=== PATIENT | male | born 1960 | race Caucasian/White ===

== ENCOUNTER 2017-12-05 09:23 | Emergency (ER) | END 2017-12-05 12:30 | disposition home or self-care (01) ==

== ENCOUNTER 2018-01-02 11:13 | Emergency (ER) | END 2018-01-02 12:08 | disposition home or self-care (01) ==

== ENCOUNTER 2018-02-14 16:04 | Emergency (ER) | END 2018-02-14 18:19 | disposition home or self-care (01) ==

== ENCOUNTER 2018-04-24 09:23 | Emergency (ER) | END 2018-04-24 11:00 | disposition home or self-care (01) ==

== ENCOUNTER 2018-06-19 08:48 | Emergency (ER) | END 2018-06-19 10:00 | disposition home or self-care (01) ==